=== PATIENT | male | born 1985 | race African-American/Black ===

== ENCOUNTER 2018-02-16 13:44 | Emergency (ER) | payer MEDICARE ==
[~2018-02-16] VITALS: Ht 180.3 cm; Wt 111.0 kg
[2018-02-16 14:34] LABS: BASOPHILS % (AUTO) 0.6 % (0-1); EOSINOPHILS # (AUTO) 0.2 X10'3 (0-0.9); EOSINOPHILS % (AUTO) 2.3 % (0-6); HEMATOCRIT 39.3 % (42.0-52.0); HEMOGLOBIN 12.7 g/dl (14.0-17.9); LYMPHOCYTES # (AUTO) 1.5 X10'3 (1.1-4.8); LYMPHOCYTES % (AUTO) 21.7 % (21-51); MEAN CORPUSCULAR HEMOGLOBIN 28.5 PG (27.0-31.0); MEAN CORPUSCULAR HGB CONC 32.4 % (33.0-36.5); MEAN CORPUSCULAR VOLUME 88.2 FL (78-98); MEAN PLATELET VOLUME 7.3 FL (7.4-10.4); MONOCYTES # (AUTO) 0.5 X10'3 (0-0.9); MONOCYTES % (AUTO) 6.7 % (2-12); NEUTROPHILS # (AUTO) 4.7 X10'3 (1.8-7.7); NEUTROPHILS % (AUTO) 68.7 % (42-75); PLATELET COUNT 371 X10'3 (140-440); RED BLOOD COUNT 4.46 X10'6 (4.70-6.10); RED CELL DISTRIBUTION WIDTH 15.2 % (11.5-14.5); WHITE BLOOD COUNT 6.9 X10'3 (4.5-11.0)
[2018-02-16 14:48] LABS: ALANINE AMINOTRANSFERASE 66 U/L (12-78); ALBUMIN 3.6 G/DL (3.4-5.0); ALBUMIN/GLOBULIN RATIO 0.9 (1.1-1.5); ALKALINE PHOSPHATASE 94 IU/L (46-116); ANION GAP 9 (8-16); ASPARTATE AMINO TRANSFERASE 28 U/L (10-37); BILIRUBIN,TOTAL 0.2 MG/DL (0.1-1.0); BLOOD UREA NITROGEN 10 MG/DL (7-18); BUN/CREATININE RATIO 9.5 (5.4-32.0); CALCIUM 8.3 MG/DL (8.5-10.1); CHLORIDE 106 MMOL/L (99-107); CREATININE 1.05 MG/DL (0.60-1.10); GLUCOSE 128 MG/DL (70-104); POTASSIUM 3.4 MMOL/L (3.5-5.1); SODIUM 142 MMOL/L (135-145); TOTAL CARBON DIOXIDE 26.7 MMOL/L (24-32); TOTAL PROTEIN 7.5 G/DL (6.4-8.2); eGFR > 90 ML/MIN
[2018-02-16 15:26] LABS: ACETAMINOPHEN < 2.0 UG/ML (10-30)
[2018-02-16 15:27] LABS: ETHANOL < 0.010 GM/DL (0.0-0.010)
[2018-02-16 18:04] LABS: URINE AMPHETAMINE SCREEN POSITIVE (Neg); URINE BARBITUATE SCREEN NEGATIVE (Neg); URINE BENZODIAZEPINES SCREEN NEGATIVE (Neg); URINE CANNABINOID SCREEN POSITIVE (Neg); URINE COCAINE SCREEN NEGATIVE (Neg); URINE METHADONE SCREEN NEGATIVE (Neg); URINE OPIATE SCREEN NEGATIVE (Neg); URINE PHENCYCLIDINE SCREEN NEGATIVE (Neg)
[2018-02-17 05:30] VITALS: BP 124/84
[2018-02-17] MEDS ORDERED: aripiprazole 5mg tablet PO SCH (08:00)
[2018-02-17] MEDS ORDERED: gabapentin 300mg capsule PO SCH (08:00)
[2018-02-17] MEDS ORDERED: FLUoxetine 20mg capsule PO SCH (08:00)
[2018-02-17] MEDS ORDERED: ARIP20TA4 PO (11:33)
[2018-02-17] MEDS ORDERED: FLUO20CA39 PO (11:33)
[2018-02-17] MEDS ORDERED: GABA-530 PO (11:34)
== END 2018-02-17 12:12 ==
LOC: ER 13:45
DX: F29 Unspecified psychosis not due to a substance or known physiological condition (principal); R45.851 Suicidal ideations; F20.9 Schizophrenia, unspecified; F17.200 Nicotine dependence, unspecified, uncomplicated; F15.90 Other stimulant use, unspecified, uncomplicated
CPT/HCPCS: 36415; 80053; 80305; 80320; 80329; 84443; 85025; 99285

== ENCOUNTER 2018-02-17 10:46 | Inpatient (IN) | payer MEDICARE, OTHER ==
[~2018-02-17] VITALS: Ht 180.3 cm; Wt 110.8 kg
[2018-02-17] MEDS ORDERED: ARIP20TA4 PO (11:33)
[2018-02-17] MEDS ORDERED: FLUO20CA39 PO (11:33)
[2018-02-17] MEDS ORDERED: GABA-530 PO (11:34)
[2018-02-17 13:26] VITALS: BP 122/76
[2018-02-17 20:00] VITALS: BP 116/66
[2018-02-18] MEDS ORDERED: mag hydrox/Alum hydrox/simeth 30ml oral suspension PO PRN (01:55)
[2018-02-18] MEDS ORDERED: magnesium hydroxide 30ml (MOM) UD suspension PO PRN (01:55)
[2018-02-18] MEDS ORDERED: acetaminophen 325mg tablet PO PRN ×2 (01:55)
[2018-02-18] MEDS: FLUoxetine 20mg capsule PO SCH (07:45)
[2018-02-18] MEDS: gabapentin 100mg capsule PO SCH ×2 (07:45→21:53)
[2018-02-18] MEDS: aripiprazole 5mg tablet PO SCH (07:45)
[2018-02-18 08:00] VITALS: BP 120/72
[2018-02-18 09:31] LABS: CHOL/HDL RATIO 3.7 (0.00-4.99); CHOLESTEROL 172 MG/DL (0-200); HDL CHOLESTEROL 46 MG/DL (35-60); LDL CHOLESTEROL 112 MG/DL (50-100); TRIGLYCERIDES 75 MG/DL (20-135)
[2018-02-18 09:45] LABS: HEMOGLOBIN A1C 5.6 % (4.5-6.2)
[2018-02-18] MEDS ORDERED: polyethylene glycol 3350 17gm powd pack PO PRN (14:05)
[2018-02-18 20:00] VITALS: BP 103/55
[2018-02-18] MEDS: docusate sod 100mg capsule PO SCH (21:52)
[2018-02-18] MEDS: LORazepam 1 MG tablet PO PRN (22:44)
[2018-02-19 08:00] VITALS: BP 112/73
[2018-02-19] MEDS: FLUoxetine 20mg capsule PO SCH (08:02)
[2018-02-19] MEDS: aripiprazole 5mg tablet PO SCH (08:02)
[2018-02-19] MEDS: gabapentin 100mg capsule PO SCH ×2 (08:02→20:27)
[2018-02-19] MEDS: docusate sod 100mg capsule PO SCH ×2 (08:02→20:27)
[2018-02-19 20:23] VITALS: BP 110/70
[2018-02-20 08:00] VITALS: BP 130/64
[2018-02-20] MEDS: aripiprazole 5mg tablet PO SCH (08:41)
[2018-02-20] MEDS: FLUoxetine 20mg capsule PO SCH (08:42)
[2018-02-20] MEDS: gabapentin 100mg capsule PO SCH ×2 (08:42→20:17)
[2018-02-20] MEDS: docusate sod 100mg capsule PO SCH ×2 (08:42→20:17)
[2018-02-20] MEDS: LORazepam 1 MG tablet PO PRN ×2 (12:18→20:55)
[2018-02-20 20:00] VITALS: BP 117/81
[2018-02-20] MEDS: zolpidem 5mg tablet PO PRN (20:55)
[2018-02-21 08:00] VITALS: BP 97/50
[2018-02-21] MEDS: docusate sod 100mg capsule PO SCH ×2 (08:09→20:46)
[2018-02-21] MEDS: aripiprazole 5mg tablet PO SCH (08:09)
[2018-02-21] MEDS: FLUoxetine 20mg capsule PO SCH (08:09)
[2018-02-21] MEDS: gabapentin 100mg capsule PO SCH ×2 (08:09→20:46)
[2018-02-21] MEDS: LORazepam 1 MG tablet PO PRN ×2 (08:20→20:46)
[2018-02-21 08:51] VITALS: BP 119/78
[2018-02-21 20:10] VITALS: BP 115/63
[2018-02-21] MEDS: zolpidem 5mg tablet PO PRN (20:46)
[2018-02-22 08:00] VITALS: BP 110/72
[2018-02-22] MEDS: aripiprazole 5mg tablet PO SCH (08:18)
[2018-02-22] MEDS: docusate sod 100mg capsule PO SCH ×2 (08:18→20:55)
[2018-02-22] MEDS: gabapentin 100mg capsule PO SCH ×2 (08:18→20:55)
[2018-02-22] MEDS: FLUoxetine 20mg capsule PO SCH (08:18)
[2018-02-22 19:00] VITALS: BP 129/75
[2018-02-22] MEDS: zolpidem 5mg tablet PO PRN (20:55)
[2018-02-22] MEDS: LORazepam 0.5 MG tablet PO PRN (20:55)
[2018-02-23 08:00] VITALS: BP 111/71
[2018-02-23] MEDS: aripiprazole 5mg tablet PO SCH (08:07)
[2018-02-23] MEDS: gabapentin 100mg capsule PO SCH ×2 (08:07→20:29)
[2018-02-23] MEDS: FLUoxetine 20mg capsule PO SCH (08:07)
[2018-02-23] MEDS: docusate sod 100mg capsule PO SCH ×2 (08:07→20:29)
[2018-02-23 19:00] VITALS: BP 102/50
[2018-02-23] MEDS: LORazepam 0.5 MG tablet PO PRN (20:29)
[2018-02-23] MEDS: zolpidem 5mg tablet PO PRN (20:29)
[2018-02-24] MEDS: aripiprazole 5mg tablet PO SCH (08:08)
[2018-02-24] MEDS: docusate sod 100mg capsule PO SCH ×2 (08:08→21:22)
[2018-02-24] MEDS: gabapentin 100mg capsule PO SCH ×2 (08:08→21:21)
[2018-02-24] MEDS: FLUoxetine 20mg capsule PO SCH (08:08)
[2018-02-24 08:12] VITALS: BP 109/62
[2018-02-24 19:00] VITALS: BP 113/68
[2018-02-24] MEDS: LORazepam 0.5 MG tablet PO PRN (21:21)
[2018-02-24] MEDS: zolpidem 5mg tablet PO PRN (21:21)
[2018-02-25 08:00] VITALS: BP 119/95
[2018-02-25] MEDS: LORazepam 0.5 MG tablet PO PRN ×2 (08:12→20:48)
[2018-02-25] MEDS: docusate sod 100mg capsule PO SCH ×2 (08:13→20:48)
[2018-02-25] MEDS: gabapentin 100mg capsule PO SCH ×2 (08:13→20:48)
[2018-02-25] MEDS: FLUoxetine 20mg capsule PO SCH (08:13)
[2018-02-25] MEDS: aripiprazole 5mg tablet PO SCH (08:13)
[2018-02-25 19:48] VITALS: BP 112/68
[2018-02-25] MEDS: zolpidem 5mg tablet PO PRN (20:48)
[2018-02-26 08:00] VITALS: BP 103/58
[2018-02-26] MEDS: docusate sod 100mg capsule PO SCH ×2 (08:18→21:29)
[2018-02-26] MEDS: FLUoxetine 20mg capsule PO SCH (08:18)
[2018-02-26] MEDS: gabapentin 100mg capsule PO SCH ×2 (08:18→21:29)
[2018-02-26] MEDS: aripiprazole 5mg tablet PO SCH (08:19)
[2018-02-26 19:32] VITALS: BP 119/70
[2018-02-26] MEDS: LORazepam 0.5 MG tablet PO PRN (21:29)
[2018-02-26] MEDS: zolpidem 5mg tablet PO PRN (21:29)
[2018-02-27 08:00] VITALS: BP 106/61
[2018-02-27] MEDS: aripiprazole 5mg tablet PO SCH (08:10)
[2018-02-27] MEDS: gabapentin 100mg capsule PO SCH (08:10)
[2018-02-27] MEDS: FLUoxetine 20mg capsule PO SCH (08:10)
[2018-02-27] MEDS: docusate sod 100mg capsule PO SCH (08:11)
[2018-02-27] MEDS ORDERED: ZOLP10TA PO (10:11)
[2018-02-27] MEDS ORDERED: GABA100C PO (10:11)
[2018-02-27] MEDS ORDERED: FLUO40CA10 PO (10:11)
[2018-02-27] MEDS ORDERED: ARIP20TA10 PO (10:11)
[2018-02-27] MEDS ORDERED: COL100C PO (10:11)
== END 2018-02-27 19:49 | disposition home or self-care (01) | DRG 885 ==
LOC: ADULT MH 10:46
PROVIDERS: ADMIT Psychiatry & Neurology Psychiatry; ATTEND Psychiatry & Neurology Psychiatry
DX: F33.2 Major depressive disorder, recurrent severe without psychotic features (principal); R45.851 Suicidal ideations; E66.3 Overweight; F43.12 Post-traumatic stress disorder, chronic; F41.9 Anxiety disorder, unspecified; F15.159 Other stimulant abuse with stimulant-induced psychotic disorder, unspecified; F17.210 Nicotine dependence, cigarettes, uncomplicated; F12.20 Cannabis dependence, uncomplicated; F25.9 Schizoaffective disorder, unspecified; K59.00 Constipation, unspecified; R48.0 Dyslexia and alexia; Z59.0 Homelessness; Z79.899 Other long term (current) drug therapy; Z65.3 Problems related to other legal circumstances; Z68.34 Body mass index [BMI] 34.0-34.9, adult
CPT/HCPCS: 36415; 80061; 83036; 87070; 99406